=== PATIENT | male | born 1990 | race Caucasian/White ===

== ENCOUNTER 2017-12-14 19:19 | Emergency (ER) | payer OTHER ==
[~2017-12-14] VITALS: Ht 185.4 cm; Wt 79.4 kg
--- NOTE | 2017-12-14 19:55 | NUR ---
[facility] INTO INTERVIEW PATIENT
[2017-12-14] MEDS ORDERED: KETOROLAC TROMETHAMINE 30 MG INJ ONE (20:10)
[2017-12-14] MEDS ORDERED: KETOROLAC TROMETHAMINE 30 MG INJ IM ONE (20:15)
[2017-12-14] MEDS ORDERED: HYDROCODONE/APAP 5-325MG TABLET PO ONE (21:00)
[2017-12-14] MEDS ORDERED: HYDROCODONE/APAP 5-325MG TABLET ONE (21:03)
--- NOTE | 2017-12-14 21:09 | NUR ---
Patient discharged to home in stable conditon. Written and verbal after care instructions given. Patient verbalizes understanding of instructions. Patient ambulated out of ER with steady gait, no acute signs of distress, VSS, all belongings taken.
[2017-12-14 21:12] VITALS: BP 142/50
== END 2017-12-14 21:13 | disposition home or self-care (01) ==
LOC: ER 19:20
DX: S29.9XXA Unspecified injury of thorax, initial encounter (principal); S19.9XXA Unspecified injury of neck, initial encounter; V43.62XA Car passenger injured in collision with other type car in traffic accident, initial encounter; Y93.89 Activity, other specified; Y92.410 Unspecified street and highway as the place of occurrence of the external cause; Y99.8 Other external cause status
CPT/HCPCS: 71101; 96372; 99284; A4663 ×2; J1885